=== PATIENT | male | born 1970 | race Caucasian/White ===

== ENCOUNTER 2019-04-06 12:46 | Emergency (ER) | payer OTHER ==
[~2019-04-06] VITALS: Ht 177.8 cm; Wt 81.8 kg
[~2019-04-06 12:46] MED LIST: LIDOcaine 1% w/EPI 1:100,000 30ml vial (MDV) ONE
[2019-04-06] MEDS ORDERED: TETanus/Pertussis (Acell)/Diphther VAC/PF (Tdap-Adult) 0.5ml syringe IM ONE (14:30)
[2019-04-06] MEDS ORDERED: CEPH-572 PO (16:04)
[2019-04-06] MEDS ORDERED: HYDR-3965 PO (16:04)
[2019-04-06 16:13] VITALS: BP 137/93
== END 2019-04-06 16:14 | disposition home or self-care (01) ==
LOC: ER 12:47
DX: S62.630B Displaced fracture of distal phalanx of right index finger, initial encounter for open fracture (principal); S61.210A Laceration without foreign body of right index finger without damage to nail, initial encounter; W45.8XXA Other foreign body or object entering through skin, initial encounter; Y93.89 Activity, other specified; Y92.89 Other specified places as the place of occurrence of the external cause; Y99.9 Unspecified external cause status
CPT/HCPCS: 12001; 73130; 90471; 99283

== ENCOUNTER 2021-12-05 03:32 | Inpatient (IN) | payer BC ==
[~2021-12-05] VITALS: Ht 177.8 cm; Wt 81.8 kg
[2021-12-05 04:05] LABS: BASOPHILS # (AUTO) 0.1 X10'3 (0-0.2); BASOPHILS % (AUTO) 0.5 % (0-1); EOSINOPHILS # (AUTO) 0.2 X10'3 (0-0.9); EOSINOPHILS % (AUTO) 2.1 % (0-6); HEMATOCRIT 47.5 % (42.0-52.0); HEMOGLOBIN 16.2 g/dl (14.0-17.9); LYMPHOCYTES # (AUTO) 1.7 X10'3 (1.1-4.8); LYMPHOCYTES % (AUTO) 17.4 % (21-51); MEAN CORPUSCULAR HEMOGLOBIN 30.1 PG (27.0-31.0); MEAN CORPUSCULAR HGB CONC 34.1 g/dL (33.0-36.5); MEAN CORPUSCULAR VOLUME 88.3 FL (78-98); MEAN PLATELET VOLUME 7.7 FL (7.4-10.4); MONOCYTES # (AUTO) 1.2 X10'3 (0-0.9); MONOCYTES % (AUTO) 12.2 % (2-12); NEUTROPHILS # (AUTO) 6.7 X10'3 (1.8-7.7); NEUTROPHILS % (AUTO) 67.8 % (42-75); PLATELET COUNT 207 X10'3 (140-440); RED BLOOD COUNT 5.37 X10'6 (4.70-6.10); RED CELL DISTRIBUTION WIDTH 13.4 % (11.5-14.5); WHITE BLOOD COUNT 9.9 X10'3 (4.5-11.0)
[2021-12-05 04:17] LABS: ALANINE AMINOTRANSFERASE 17 U/L (12-78); ALBUMIN 3.5 G/DL (3.4-5.0); ALBUMIN/GLOBULIN RATIO 0.9 (1.1-1.5); ALKALINE PHOSPHATASE 96 IU/L (46-116); ANION GAP 9 (8-16); ASPARTATE AMINO TRANSFERASE 18 U/L (10-37); BILIRUBIN,TOTAL 0.6 MG/DL (0.1-1.0); BLOOD UREA NITROGEN 21 MG/DL (7-18); BUN/CREATININE RATIO 16.5 (5.4-32.0); CALCIUM 8.7 MG/DL (8.5-10.1); CHLORIDE 103 MMOL/L (99-107); CREATININE 1.27 MG/DL (0.60-1.10); GLUCOSE 108 MG/DL (70-104); POTASSIUM 5.3 MMOL/L (3.5-5.1); SODIUM 138 MMOL/L (135-145); TOTAL CARBON DIOXIDE 26.3 MMOL/L (24-32); TOTAL PROTEIN 7.3 G/DL (6.4-8.2); eGFR 60 ML/MIN
[2021-12-05] MEDS ORDERED: heparin 25,000 UNIT/250ml bag 250 ML IV SCH ×2 (04:40→09:10)
[2021-12-05] MEDS ORDERED: heparin 10,000 units/1 ML INJ IV ONE (04:40)
[2021-12-05] MEDS ORDERED: heparin 10,000 units/1 ML INJ IV PRN ×2 (04:40→09:10)
[2021-12-05] MEDS ORDERED: iohexol 350MG/ML 100ml bottle IV ONE (04:49)
[2021-12-05 04:53] LABS: APTT 29 SECONDS (22-32)
[2021-12-05] MEDS: heparin 25,000 UNIT/250ml bag 250 ML IV SCH ×2 (05:28→21:38)
[2021-12-05 07:16] LABS: C-REACTIVE PROTEIN 10.38 MG/DL (0.0-0.5)
--- NOTE | 2021-12-05 07:53 | NUR ---
[employer] AT BEDSIDE.
[2021-12-05 08:55] LABS: CLARITY,URINE CLEAR (Clear); COLOR,URINE YELLOW (Yellow); GLUCOSE, URINE NEGATIVE (Neg); KETONES,URINE 15 mg/dl (Neg); LEUKOCYTE ESTERASE ,URINE NEGATIVE (Neg); NITRITES, URINE NEGATIVE (Neg); OCCULT BLOOD,URINE NEGATIVE (Neg); PH,URINE 5.5 (4.8-8.0); PROTEIN,URINE NEGATIVE (Neg)
[2021-12-05 09:07] LABS: UA COLLECTION TYPE NON-SPECIFIED
[2021-12-05] MEDS ORDERED: LORazepam 0.5 MG tablet PO PRN (09:10)
[2021-12-05] MEDS ORDERED: bisacodyl 10mg suppository rectal RC PRN (09:10)
[2021-12-05] MEDS ORDERED: mag hydrox/Alum hydrox/simeth 30ml oral suspension PO PRN (09:10)
[2021-12-05] MEDS ORDERED: normal saline 1000ml 1,000 ML IV SCH (09:10)
[2021-12-05] MEDS ORDERED: potassium CL 10mEq/100ml bag 100 ML IV PRN (09:10)
[2021-12-05] MEDS ORDERED: HYDROcodone/acetaminophen 10/325mg tab PO PRN (09:10)
[2021-12-05] MEDS ORDERED: potassium Cl 20 mEq SR tablet PO PRN ×2 (09:10)
[2021-12-05] MEDS ORDERED: morphine 2 MG/ML inj. syringe IV PRN ×2 (09:10)
[2021-12-05] MEDS ORDERED: magnesium hydroxide 30ml (MOM) UD suspension PO PRN (09:10)
[2021-12-05] MEDS ORDERED: metoclopramide 5 mg/ml inj IV PRN (09:10)
[2021-12-05] MEDS ORDERED: acetaminophen 325mg tablet PO PRN ×2 (09:10)
[2021-12-05] MEDS ORDERED: magnesium 4gm in 100ml NS 100 ML IV PRN (09:10)
[2021-12-05] MEDS ORDERED: magnesium 2GM in 50ml NS 50 ML IV PRN (09:10)
[2021-12-05] MEDS ORDERED: acetaminophen 650mg rectal suppository RC PRN (09:10)
[2021-12-05] MEDS ORDERED: HYDROcodone/acetaminophen 5mg/325mg tablet PO PRN (09:10)
[2021-12-05] MEDS ORDERED: magnesium Cl slow-release 64mg tablet PO PRN (09:10)
[2021-12-05] MEDS ORDERED: ondansetron 4mg rapidly disintigrating tab PO PRN (09:10)
[2021-12-05] MEDS ORDERED: ondansetron/PF 4mg/2ml inj IV PRN (09:10)
[2021-12-05 09:14] LABS: URINE AMPHETAMINE SCREEN POSITIVE (Neg); URINE BARBITUATE SCREEN NEGATIVE (Neg); URINE BENZODIAZEPINES SCREEN NEGATIVE (Neg); URINE CANNABINOID SCREEN POSITIVE (Neg); URINE COCAINE SCREEN NEGATIVE (Neg); URINE METHADONE SCREEN NEGATIVE (Neg); URINE OPIATE SCREEN NEGATIVE (Neg); URINE PHENCYCLIDINE SCREEN NEGATIVE (Neg)
[2021-12-05] MEDS: K and/or MAG REPLACEMENT MC SCH (09:25)
[2021-12-05 09:52] LABS: HEMOGLOBIN A1C 6.3 % (4.5-6.2)
[2021-12-05 10:19] LABS: POTASSIUM 4.4 MMOL/L (3.5-5.1)
--- NOTE | 2021-12-05 11:00 | NUR ---
During IV insertion pt became "light headed". His RR=40, O2 Sats=92% on RA. Placed pt on 2L NC. Sats after O2=94%.
[2021-12-05] MEDS ORDERED: NO HOME MEDS (13:52)
--- NOTE | 2021-12-05 14:03 | NUR ---
Gladys VÁZQUEZ. of pt's episodes of tachypnea.
[2021-12-05 17:49] LABS: APTT 52 SECONDS (22-32)
[2021-12-05 20:00] VITALS: BP 147/97
[2021-12-05] MEDS: metoprolol tartrate 12.5mg (1/2 tablet) PO SCH (20:08)
[2021-12-05] MEDS: docusate sod 100mg capsule PO SCH (20:08)
[2021-12-05] MEDS: furosemide 20 MG/2 ML vial IV SCH (20:09)
[2021-12-05] MEDS ORDERED: temazepam 15mg capsule PO PRN (21:00)
[2021-12-05 22:00] VITALS: BP 151/93
[2021-12-06 01:35] LABS: BASOPHILS # (AUTO) 0.1 X10'3 (0-0.2); BASOPHILS % (AUTO) 0.9 % (0-1); EOSINOPHILS # (AUTO) 0.1 X10'3 (0-0.9); EOSINOPHILS % (AUTO) 0.8 % (0-6); HEMATOCRIT 42.1 % (42.0-52.0); HEMOGLOBIN 14.3 g/dl (14.0-17.9); LYMPHOCYTES # (AUTO) 1.6 X10'3 (1.1-4.8); MEAN CORPUSCULAR HEMOGLOBIN 30.1 PG (27.0-31.0); MEAN CORPUSCULAR HGB CONC 33.9 g/dL (33.0-36.5); MEAN CORPUSCULAR VOLUME 88.5 FL (78-98); MEAN PLATELET VOLUME 7.9 FL (7.4-10.4); MONOCYTES # (AUTO) 0.7 X10'3 (0-0.9); MONOCYTES % (AUTO) 7.2 % (2-12); NEUTROPHILS # (AUTO) 7.3 X10'3 (1.8-7.7); NEUTROPHILS % (AUTO) 75.1 % (42-75); PLATELET COUNT 186 X10'3 (140-440); RED BLOOD COUNT 4.76 X10'6 (4.70-6.10); RED CELL DISTRIBUTION WIDTH 13.1 % (11.5-14.5); WHITE BLOOD COUNT 9.8 X10'3 (4.5-11.0)
[2021-12-06 02:00] VITALS: BP 154/90
[2021-12-06 02:04] LABS: ALANINE AMINOTRANSFERASE 17 U/L (12-78); ALBUMIN 2.9 G/DL (3.4-5.0); ALBUMIN/GLOBULIN RATIO 0.8 (1.1-1.5); ALKALINE PHOSPHATASE 82 IU/L (46-116); ANION GAP 13 (8-16); ASPARTATE AMINO TRANSFERASE 14 U/L (10-37); BILIRUBIN,TOTAL 0.5 MG/DL (0.1-1.0); BLOOD UREA NITROGEN 17 MG/DL (7-18); BUN/CREATININE RATIO 15.9 (5.4-32.0); CHLORIDE 103 MMOL/L (99-107); CHOL/HDL RATIO 3.2 (0.00-4.99); CHOLESTEROL 141 MG/DL (0-200); CREATININE 1.07 MG/DL (0.60-1.10); GLUCOSE 162 MG/DL (70-104); HDL CHOLESTEROL 44 MG/DL (35-60); LDL CHOLESTEROL 82 MG/DL (50-100); MAGNESIUM 1.8 MG/DL (1.5-2.4); PHOSPHORUS 3.2 MG/DL (2.3-4.5); POTASSIUM 3.8 MMOL/L (3.5-5.1); SODIUM 138 MMOL/L (135-145); TOTAL CARBON DIOXIDE 21.6 MMOL/L (24-32); TOTAL PROTEIN 6.4 G/DL (6.4-8.2); TRIGLYCERIDES 73 MG/DL (20-135); eGFR 73 ML/MIN
[2021-12-06 06:00] VITALS: BP 130/45
[2021-12-06] MEDS: metoprolol tartrate 12.5mg (1/2 tablet) PO SCH (07:35)
[2021-12-06] MEDS: furosemide 20 MG/2 ML vial IV SCH ×2 (07:35→19:28)
[2021-12-06] MEDS: docusate sod 100mg capsule PO SCH ×2 (07:35→19:28)
[2021-12-06] MEDS: K and/or MAG REPLACEMENT MC SCH ×2 (07:49→20:00)
[2021-12-06] MEDS ORDERED: metoprolol tartrate 12.5mg (1/2 tablet) PO ONE (09:15)
[2021-12-06] MEDS: heparin 10,000 units/1 ML INJ IV PRN ×2 (10:31→19:25)
[2021-12-06 11:00] VITALS: BP 131/95
[2021-12-06 15:00] VITALS: BP 151/60
[2021-12-06] MEDS: heparin 25,000 UNIT/250ml bag 250 ML IV SCH (16:05)
[2021-12-06 18:00] VITALS: BP 141/96
--- NOTE | 2021-12-06 18:30 | NUR ---
received pt in bed sleeping , arousal to stimuli. Heparin infusing. PTT level 37 medication adjusted per protocol; now infusing at 1600.
[2021-12-06] MEDS: metoprolol tartrate 25mg tablet PO SCH (19:31)
[2021-12-06 22:00] VITALS: BP 134/94
[2021-12-07 02:00] VITALS: BP 150/94
[2021-12-07 06:46] LABS: BASOPHILS # (AUTO) 0.1 X10'3 (0-0.2); BASOPHILS % (AUTO) 0.9 % (0-1); EOSINOPHILS # (AUTO) 0.2 X10'3 (0-0.9); EOSINOPHILS % (AUTO) 2.7 % (0-6); HEMOGLOBIN 14.4 g/dl (14.0-17.9); LYMPHOCYTES % (AUTO) 26.2 % (21-51); MEAN CORPUSCULAR HEMOGLOBIN 30.3 PG (27.0-31.0); MEAN CORPUSCULAR HGB CONC 34.4 g/dL (33.0-36.5); MEAN CORPUSCULAR VOLUME 88.1 FL (78-98); MONOCYTES % (AUTO) 12.4 % (2-12); NEUTROPHILS # (AUTO) 4.5 X10'3 (1.8-7.7); NEUTROPHILS % (AUTO) 57.8 % (42-75); PLATELET COUNT 224 X10'3 (140-440); RED BLOOD COUNT 4.76 X10'6 (4.70-6.10); RED CELL DISTRIBUTION WIDTH 13.1 % (11.5-14.5); WHITE BLOOD COUNT 7.8 X10'3 (4.5-11.0)
[2021-12-07 07:12] LABS: ALANINE AMINOTRANSFERASE 13 U/L (12-78); ALBUMIN 2.8 G/DL (3.4-5.0); ALBUMIN/GLOBULIN RATIO 0.8 (1.1-1.5); ALKALINE PHOSPHATASE 75 IU/L (46-116); ANION GAP 13 (8-16); ASPARTATE AMINO TRANSFERASE 14 U/L (10-37); BILIRUBIN,TOTAL 0.3 MG/DL (0.1-1.0); BLOOD UREA NITROGEN 13 MG/DL (7-18); BUN/CREATININE RATIO 11.6 (5.4-32.0); CALCIUM 8.2 MG/DL (8.5-10.1); CHLORIDE 104 MMOL/L (99-107); CREATININE 1.12 MG/DL (0.60-1.10); GLUCOSE 126 MG/DL (70-104); PHOSPHORUS 3.6 MG/DL (2.3-4.5); POTASSIUM 3.6 MMOL/L (3.5-5.1); SODIUM 140 MMOL/L (135-145); TOTAL CARBON DIOXIDE 23.2 MMOL/L (24-32); TOTAL PROTEIN 6.5 G/DL (6.4-8.2); eGFR 69 ML/MIN
[2021-12-07 07:30] LABS: MAGNESIUM 2.1 MG/DL (1.5-2.4)
[2021-12-07] MEDS: K and/or MAG REPLACEMENT MC SCH (08:00)
[2021-12-07 08:06] VITALS: BP_SYST 179
[2021-12-07] MEDS: metoprolol tartrate 25mg tablet PO SCH (08:06)
[2021-12-07] MEDS: docusate sod 100mg capsule PO SCH (08:06)
[2021-12-07] MEDS: furosemide 20 MG/2 ML vial IV SCH (08:07)
[2021-12-07] MEDS: heparin 25,000 UNIT/250ml bag 250 ML IV SCH (08:08)
[2021-12-07] MEDS ORDERED: APIX5TAB3 PO (12:48)
[2021-12-07] MEDS ORDERED: FURO20TA4 PO (12:48)
[2021-12-07] MEDS ORDERED: LOP25T PO (12:48)
[2021-12-07] MEDS ORDERED: POTA10TA37 PO (12:48)
[2021-12-07] MEDS ORDERED: apixaban 5mg tablet PO ONE (13:00)
== END 2021-12-07 13:57 | disposition home or self-care (01) | DRG 175 ==
LOC: ER 03:32 → ED HOLD 09:14 → PCU 3S 19:40
PROVIDERS: ADMIT Family Medicine; ATTEND Family Medicine
PROC: B32T1ZZ Computerized Tomography (CT Scan) of Left Pulmonary Artery using Low Osmolar Contrast (ICD-10-PCS; principal; 2021-12-05)
PROC: B3201ZZ Computerized Tomography (CT Scan) of Thoracic Aorta using Low Osmolar Contrast (ICD-10-PCS; 2021-12-05)
PROC: B32S1ZZ Computerized Tomography (CT Scan) of Right Pulmonary Artery using Low Osmolar Contrast (ICD-10-PCS; 2021-12-05)
DX: I26.99 Other pulmonary embolism without acute cor pulmonale (principal); I21.A1 Myocardial infarction type 2; J96.01 Acute respiratory failure with hypoxia; N17.9 Acute kidney failure, unspecified; I82.412 Acute embolism and thrombosis of left femoral vein; I82.432 Acute embolism and thrombosis of left popliteal vein; I82.532 Chronic embolism and thrombosis of left popliteal vein; I82.4Z1 Acute embolism and thrombosis of unspecified deep veins of right distal lower extremity; I10 Essential (primary) hypertension; F17.220 Nicotine dependence, chewing tobacco, uncomplicated; F15.10 Other stimulant abuse, uncomplicated; Z20.822 Contact with and (suspected) exposure to COVID-19; E87.5 Hyperkalemia; F12.90 Cannabis use, unspecified, uncomplicated; I07.1 Rheumatic tricuspid insufficiency; I27.20 Pulmonary hypertension, unspecified; R00.0 Tachycardia, unspecified; R59.9 Enlarged lymph nodes, unspecified; R91.8 Other nonspecific abnormal finding of lung field; Z86.16 Personal history of COVID-19; Z71.6 Tobacco abuse counseling; Z71.51 Drug abuse counseling and surveillance of drug abuser
CPT/HCPCS: 36415; 71045; 71275; 80053; 80061; 80305; 81003; 83036; 83735; 83880; 84100; 84132; 84443; 84484; 85025; 85610; 85730; 86140; 87081; 87635; 93005; 93306; 93970; 96361; 96365; 96376; 99291; C9803; G0378; J1644; J1940; J2270; J7030; Q9967

== ENCOUNTER 2023-10-03 01:18 | Inpatient (IN) | payer BC ==
[~2023-10-03] VITALS: Ht 160 cm; Wt 81.9 kg
[2023-10-03] VITALS (10 sets, daily range): PULSE 87–98; RESP 16–36; O2SAT 92–98
[~2023-10-03 01:18] MED LIST changes: +APIX5TAB3 PO; +FURO20TA4 PO; -LIDOcaine 1% w/EPI 1:100,000 30ml vial (MDV) ONE; +LOP25T PO; +POTA-206 PO
[2023-10-03 01:44] LABS: BASOPHILS # (AUTO) 0.1 X10'3 (0-0.2); BASOPHILS % (AUTO) 0.4 % (0-1); EOSINOPHILS % (AUTO) 0.2 % (0-6); HEMATOCRIT 51.4 % (42.0-52.0); HEMOGLOBIN 17.6 g/dl (14.0-17.9); LYMPHOCYTES # (AUTO) 0.9 X10'3 (1.1-4.8); LYMPHOCYTES % (AUTO) 7.8 % (21-51); MEAN CORPUSCULAR HEMOGLOBIN 31.3 PG (27.0-31.0); MEAN CORPUSCULAR HGB CONC 34.2 g/dL (33.0-36.5); MEAN CORPUSCULAR VOLUME 91.3 FL (78-98); MEAN PLATELET VOLUME 8.1 FL (7.4-10.4); MONOCYTES # (AUTO) 1.3 X10'3 (0-0.9); MONOCYTES % (AUTO) 11.3 % (2-12); NEUTROPHILS # (AUTO) 9.3 X10'3 (1.8-7.7); NEUTROPHILS % (AUTO) 80.3 % (42-75); PLATELET COUNT 242 X10'3 (140-440); RED BLOOD COUNT 5.63 X10'6 (4.70-6.10); RED CELL DISTRIBUTION WIDTH 13.6 % (11.5-14.5); WHITE BLOOD COUNT 11.5 X10'3 (4.5-11.0)
[2023-10-03 01:50] LABS: ALANINE AMINOTRANSFERASE 17 U/L (12-78); ALBUMIN 3.4 G/DL (3.4-5.0); ALBUMIN/GLOBULIN RATIO 0.9 (1.1-1.5); ALKALINE PHOSPHATASE 96 IU/L (46-116); ANION GAP 9 (8-16); ASPARTATE AMINO TRANSFERASE 22 U/L (10-37); BILIRUBIN,TOTAL 0.5 MG/DL (0.1-1.0); BLOOD UREA NITROGEN 32 MG/DL (7-18); BUN/CREATININE RATIO 23.7 (10.0-20.0); CALCIUM 8.8 MG/DL (8.5-10.1); CHLORIDE 96 MMOL/L (99-107); CREATININE 1.35 MG/DL (0.60-1.10); GLUCOSE 108 MG/DL (70-104); SODIUM 132 MMOL/L (135-145); TOTAL CARBON DIOXIDE 26.9 MMOL/L (24-32); TOTAL PROTEIN 7.3 G/DL (6.4-8.2); eCRCL 65 ML/MIN; eGFR 55 ML/MIN
[2023-10-03 01:57] LABS: PRO BRAIN NATRIURETIC PEPTIDE 2109 PG/ML (0-125)
[2023-10-03] MEDS ORDERED: iohexol 350MG/ML 100ml bottle IV ONE (01:58)
[2023-10-03] MEDS ORDERED: normal saline 1000ml 1,000 ML IV ONE (02:00)
[2023-10-03 02:11] LABS: ABG BASE EXCESS -3.9 mmol/L (-2.0-2.0); ABG HCO3 19.2 mmol/L (22.0-26.0); ABG OXYGEN SATURATION 87.3 % (94-97); ABG PCO2 (T) 30.3 mmHg (35.0-48.0); ABG PH (T) 7.416 (7.340-7.440); ABG PO2 (T) 51.2 mmHg (75.0-100.0); ALLEN'S TEST POSITIVE; FCOHb 0.3 % (0.0-3.9); FHHb 12.6 % (0.0-5.0); FMetHb 0.2 % (0.0-1.5); FO2Hb 86.9 % (94-97); PATIENT TEMPERATURE 36.5; TOTAL HEMOGLOBIN 18.5 G/dl (14.0-17.9)
[2023-10-03 02:14] LABS: APTT 36 SECONDS (22-32); INR 1.1 INR; PROTHROMBIN TIME 11.6 SECONDS (9.0-12.0)
[2023-10-03] MEDS ORDERED: CefTRIAXone/D5W-Rocephin 1gm 50 ML IV STA (03:12)
[2023-10-03] MEDS ORDERED: azithromycin/NS 500mg/250ml 250 ML IV STA (03:12)
[2023-10-03] MEDS ORDERED: morphine 2 MG/ML inj. syringe IV PRN (05:15)
[2023-10-03] MEDS ORDERED: mag hydrox/Alum hydrox/simeth 30ml oral suspension PO PRN (05:15)
[2023-10-03] MEDS ORDERED: bisacodyl 10mg suppository rectal RC PRN (05:15)
[2023-10-03] MEDS ORDERED: HYDROcodone/acetaminophen 10/325mg tab PO PRN (05:15)
[2023-10-03] MEDS ORDERED: magnesium hydroxide 30ml (MOM) UD suspension PO PRN (05:15)
[2023-10-03] MEDS ORDERED: ondansetron/PF 4mg/2ml inj IV PRN (05:15)
[2023-10-03] MEDS ORDERED: diphenhydrAMINE 50 mg/ml inj IV PRN (05:15)
[2023-10-03] MEDS ORDERED: ondansetron 4mg rapidly disintigrating tab PO PRN (05:15)
[2023-10-03] MEDS ORDERED: acetaminophen 650mg rectal suppository RC PRN (05:15)
[2023-10-03] MEDS ORDERED: diphenhydrAMINE 25mg capsule PO PRN (05:15)
[2023-10-03] MEDS ORDERED: HYDROcodone/acetaminophen 5mg/325mg tablet PO PRN (05:15)
[2023-10-03] MEDS ORDERED: ipratropium/albuterol 3ml nebule NEB PRN (05:15)
[2023-10-03] MEDS ORDERED: acetaminophen 325mg tablet PO PRN ×2 (05:15)
[2023-10-03 06:03] LABS: HEMOGLOBIN A1C 5.9 % (4.5-6.2)
[2023-10-03 06:06] LABS: MAGNESIUM 1.8 MG/DL (1.5-2.4); PHOSPHORUS 4.9 MG/DL (2.3-4.5)
[2023-10-03] MEDS: pantoprazole 40mg Tablet.DR PO SCH (07:30)
[2023-10-03] MEDS: docusate sod 100mg capsule PO SCH ×2 (07:45→20:59)
[2023-10-03] MEDS: normal saline 1000ml 1,000 ML IV SCH ×2 (07:55→15:15)
[2023-10-03] MEDS ORDERED: LORazepam 2 mg/ml vial IV ONE (09:30)
[2023-10-03] MEDS ORDERED: methylPREDNISolone sod succ 125mg/2ml vial IV ONE (09:30)
[2023-10-03 13:49] LABS: URINE AMPHETAMINE SCREEN POSITIVE (Neg); URINE BARBITUATE SCREEN NEGATIVE (Neg); URINE BENZODIAZEPINES SCREEN NEGATIVE (Neg); URINE CANNABINOID SCREEN POSITIVE (Neg); URINE COCAINE SCREEN NEGATIVE (Neg); URINE METHADONE SCREEN NEGATIVE (Neg); URINE OPIATE SCREEN NEGATIVE (Neg); URINE PHENCYCLIDINE SCREEN NEGATIVE (Neg)
[2023-10-03 13:59] LABS: ABG BASE EXCESS -0.7 mmol/L (-2.0-2.0); ABG HCO3 23.6 mmol/L (22.0-26.0); ABG PCO2 (T) 37.3 mmHg (35.0-48.0); ABG PH (T) 7.416 (7.340-7.440); ABG PO2 (T) 67.5 mmHg (75.0-100.0); ALLEN'S TEST POSITIVE; FCOHb 0.3 % (0.0-3.9); FMetHb 0.2 % (0.0-1.5); FO2Hb 93.5 % (94-97); MODE MASK - CPAP; PATIENT TEMPERATURE 36.3; TOTAL HEMOGLOBIN 17.5 G/dl (14.0-17.9)
[2023-10-03 14:03] LABS: BILIRUBIN,URINE NEGATIVE (Neg); CLARITY,URINE CLEAR (Clear); COLOR,URINE YELLOW (Yellow); GLUCOSE, URINE NEGATIVE (Neg); KETONES,URINE NEGATIVE (Neg); LEUKOCYTE ESTERASE ,URINE NEGATIVE (Neg); NITRITES, URINE NEGATIVE (Neg); OCCULT BLOOD,URINE NEGATIVE (Neg); PROTEIN,URINE NEGATIVE (Neg); UROBILINOGEN,URINE 0.2 E.U/dL (0.2-1.0)
[2023-10-03 14:17] LABS: UA COLLECTION TYPE CLN CATCH MIDSTREAM
[2023-10-03] MEDS: amLODIPine 5mg tablet PO SCH (14:42)
[2023-10-03] MEDS: LORazepam 2 mg/ml vial IV PRN (18:01)
[2023-10-03] MEDS: apixaban 5mg tablet PO SCH (20:00)
[2023-10-03] MEDS: metoprolol tartrate 25mg tablet PO SCH (20:00)
[2023-10-03] MEDS: azithromycin/NS 500mg/250ml 250 ML IV SCH (20:59)
[2023-10-03] MEDS: CefTRIAXone/D5W-Rocephin 1gm 50 ML IV SCH (21:00)
[2023-10-03] MEDS: temazepam 15mg capsule PO PRN (21:00)
[2023-10-03] MEDS ORDERED: diazepam inj 5 MG/ML inj. IV PRN (22:35)
[2023-10-04] VITALS (14 sets, daily range): BP systolic 104–121; BP diastolic 68–87; PULSE 78–104; RESP 16–37; TEMP 97.6–98.1; O2SAT 91–99
[2023-10-04] MEDS: normal saline 1000ml 1,000 ML IV SCH ×3 (01:15→13:21)
[2023-10-04 06:25] LABS: ALANINE AMINOTRANSFERASE 18 U/L (12-78); ALBUMIN 3.1 G/DL (3.4-5.0); ALBUMIN/GLOBULIN RATIO 0.8 (1.1-1.5); ALKALINE PHOSPHATASE 81 IU/L (46-116); ANION GAP 5 (8-16); ASPARTATE AMINO TRANSFERASE 17 U/L (10-37); BILIRUBIN,TOTAL 0.3 MG/DL (0.1-1.0); BLOOD UREA NITROGEN 27 MG/DL (7-18); BUN/CREATININE RATIO 29.7 (10.0-20.0); CALCIUM 8.8 MG/DL (8.5-10.1); CHLORIDE 103 MMOL/L (99-107); CHOL/HDL RATIO 2.9 (0.00-4.99); CHOLESTEROL 206 MG/DL (0-200); CREATININE 0.91 MG/DL (0.60-1.10); GLUCOSE 106 MG/DL (70-104); HDL CHOLESTEROL 71 MG/DL (35-60); LDL CHOLESTEROL 118 MG/DL (50-100); POTASSIUM 5.4 MMOL/L (3.5-5.1); SODIUM 137 MMOL/L (135-145); TOTAL CARBON DIOXIDE 29.4 MMOL/L (24-32); TOTAL PROTEIN 6.8 G/DL (6.4-8.2); TRIGLYCERIDES 43 MG/DL (20-135); eCRCL 76 ML/MIN; eGFR 87 ML/MIN
[2023-10-04 06:29] LABS: BASOPHILS % (AUTO) 0.2 % (0-1); EOSINOPHILS % (AUTO) 0 % (0-6); HEMATOCRIT 47.8 % (42.0-52.0); HEMOGLOBIN 16.1 g/dl (14.0-17.9); LYMPHOCYTES # (AUTO) 0.6 X10'3 (1.1-4.8); LYMPHOCYTES % (AUTO) 5.5 % (21-51); MEAN CORPUSCULAR HEMOGLOBIN 31.1 PG (27.0-31.0); MEAN CORPUSCULAR HGB CONC 33.7 g/dL (33.0-36.5); MEAN CORPUSCULAR VOLUME 92.1 FL (78-98); MEAN PLATELET VOLUME 8.4 FL (7.4-10.4); MONOCYTES # (AUTO) 0.7 X10'3 (0-0.9); MONOCYTES % (AUTO) 6.4 % (2-12); NEUTROPHILS # (AUTO) 9.6 X10'3 (1.8-7.7); NEUTROPHILS % (AUTO) 87.9 % (42-75); PLATELET COUNT 223 X10'3 (140-440); RED BLOOD COUNT 5.19 X10'6 (4.70-6.10); RED CELL DISTRIBUTION WIDTH 13.5 % (11.5-14.5); WHITE BLOOD COUNT 10.9 X10'3 (4.5-11.0)
[2023-10-04 09:39] LABS: ABG BASE EXCESS -1.3 mmol/L (-2.0-2.0); ABG HCO3 23.6 mmol/L (22.0-26.0); ABG OXYGEN SATURATION 98.7 % (94-97); ABG PCO2 (T) 40.5 mmHg (35.0-48.0); ABG PH (T) 7.383 (7.340-7.440); ABG PO2 (T) 121.5 mmHg (75.0-100.0); ALLEN'S TEST POSITIVE; FCOHb 0.3 % (0.0-3.9); FHHb 1.3 % (0.0-5.0); FMetHb 0.3 % (0.0-1.5); FO2Hb 98.1 % (94-97); MODE MASK - CPAP; TOTAL HEMOGLOBIN 16.4 G/dl (14.0-17.9)
[2023-10-04] MEDS: amLODIPine 5mg tablet PO SCH (09:47)
[2023-10-04] MEDS: docusate sod 100mg capsule PO SCH ×2 (09:47→21:53)
[2023-10-04] MEDS: metoprolol tartrate 25mg tablet PO SCH ×2 (09:47→21:54)
[2023-10-04] MEDS: apixaban 5mg tablet PO SCH ×2 (09:47→21:54)
[2023-10-04] MEDS: pantoprazole 40mg Tablet.DR PO SCH (09:47)
[2023-10-04] MEDS: CefTRIAXone/D5W-Rocephin 1gm 50 ML IV SCH (21:55)
[2023-10-04] MEDS: azithromycin/NS 500mg/250ml 250 ML IV SCH (22:57)
[2023-10-04] MEDS: LORazepam 2 mg/ml vial IV PRN (23:34)
[2023-10-05] VITALS (16 sets, daily range): BP systolic 99–123; BP diastolic 57–88; PULSE 76–99; RESP 20–36; TEMP 97.2–98; O2SAT 92–99
[2023-10-05] MEDS: normal saline 1000ml 1,000 ML IV SCH ×2 (05:56→16:58)
[2023-10-05 06:52] LABS: BASOPHILS % (AUTO) 0.4 % (0-1); EOSINOPHILS % (AUTO) 0.2 % (0-6); HEMATOCRIT 46.9 % (42.0-52.0); HEMOGLOBIN 15.6 g/dl (14.0-17.9); LYMPHOCYTES # (AUTO) 1.1 X10'3 (1.1-4.8); LYMPHOCYTES % (AUTO) 10.8 % (21-51); MEAN CORPUSCULAR HEMOGLOBIN 30.8 PG (27.0-31.0); MEAN CORPUSCULAR HGB CONC 33.3 g/dL (33.0-36.5); MEAN CORPUSCULAR VOLUME 92.5 FL (78-98); MEAN PLATELET VOLUME 8.1 FL (7.4-10.4); MONOCYTES # (AUTO) 0.8 X10'3 (0-0.9); MONOCYTES % (AUTO) 8.4 % (2-12); NEUTROPHILS % (AUTO) 80.2 % (42-75); PLATELET COUNT 242 X10'3 (140-440); RED BLOOD COUNT 5.07 X10'6 (4.70-6.10); RED CELL DISTRIBUTION WIDTH 13.6 % (11.5-14.5); WHITE BLOOD COUNT 9.9 X10'3 (4.5-11.0)
[2023-10-05 07:13] LABS: ALANINE AMINOTRANSFERASE 19 U/L (12-78); ALBUMIN 2.8 G/DL (3.4-5.0); ALBUMIN/GLOBULIN RATIO 0.8 (1.1-1.5); ALKALINE PHOSPHATASE 76 IU/L (46-116); ANION GAP 9 (8-16); ASPARTATE AMINO TRANSFERASE 16 U/L (10-37); BILIRUBIN,TOTAL 0.4 MG/DL (0.1-1.0); BLOOD UREA NITROGEN 23 MG/DL (7-18); BUN/CREATININE RATIO 29.1 (10.0-20.0); CALCIUM 8.5 MG/DL (8.5-10.1); CHLORIDE 102 MMOL/L (99-107); CREATININE 0.79 MG/DL (0.60-1.10); GLUCOSE 88 MG/DL (70-104); POTASSIUM 4.3 MMOL/L (3.5-5.1); SODIUM 137 MMOL/L (135-145); TOTAL CARBON DIOXIDE 26.5 MMOL/L (24-32); TOTAL PROTEIN 6.3 G/DL (6.4-8.2); eCRCL 87 ML/MIN; eGFR > 90 ML/MIN
[2023-10-05] MEDS: docusate sod 100mg capsule PO SCH ×2 (08:00→19:48)
[2023-10-05] MEDS ORDERED: furosemide 20 MG/2 ML vial IV SCH (08:00)
[2023-10-05] MEDS: apixaban 5mg tablet PO SCH ×2 (08:05→19:48)
[2023-10-05] MEDS: pantoprazole 40mg Tablet.DR PO SCH (08:05)
[2023-10-05] MEDS: metoprolol tartrate 25mg tablet PO SCH ×2 (08:06→19:48)
[2023-10-05] MEDS: temazepam 15mg capsule PO PRN (19:48)
[2023-10-05] MEDS: furosemide 40mg/4ml inj IV SCH (19:49)
[2023-10-05] MEDS: CefTRIAXone/D5W-Rocephin 1gm 50 ML IV SCH (20:01)
[2023-10-06] VITALS (13 sets, daily range): BP systolic 109–143; BP diastolic 51–84; PULSE 76–106; RESP 18–36; TEMP 97–99.1; O2SAT 85–98
[2023-10-06 07:09] LABS: BASOPHILS % (AUTO) 0.6 % (0-1); EOSINOPHILS # (AUTO) 0.2 X10'3 (0-0.9); EOSINOPHILS % (AUTO) 2.1 % (0-6); HEMATOCRIT 48.8 % (42.0-52.0); HEMOGLOBIN 16.5 g/dl (14.0-17.9); LYMPHOCYTES # (AUTO) 1.3 X10'3 (1.1-4.8); LYMPHOCYTES % (AUTO) 16.6 % (21-51); MEAN CORPUSCULAR HGB CONC 33.7 g/dL (33.0-36.5); MEAN CORPUSCULAR VOLUME 92.1 FL (78-98); MONOCYTES # (AUTO) 0.9 X10'3 (0-0.9); MONOCYTES % (AUTO) 12.2 % (2-12); NEUTROPHILS # (AUTO) 5.3 X10'3 (1.8-7.7); NEUTROPHILS % (AUTO) 68.5 % (42-75); PLATELET COUNT 269 X10'3 (140-440); RED CELL DISTRIBUTION WIDTH 13.3 % (11.5-14.5); WHITE BLOOD COUNT 7.7 X10'3 (4.5-11.0)
[2023-10-06 07:32] LABS: ALANINE AMINOTRANSFERASE 17 U/L (12-78); ALBUMIN/GLOBULIN RATIO 0.8 (1.1-1.5); ALKALINE PHOSPHATASE 84 IU/L (46-116); ANION GAP 9 (8-16); ASPARTATE AMINO TRANSFERASE 18 U/L (10-37); BILIRUBIN,TOTAL 0.3 MG/DL (0.1-1.0); BLOOD UREA NITROGEN 19 MG/DL (7-18); BUN/CREATININE RATIO 17.6 (10.0-20.0); CALCIUM 8.6 MG/DL (8.5-10.1); CHLORIDE 101 MMOL/L (99-107); CREATININE 1.08 MG/DL (0.60-1.10); GLUCOSE 97 MG/DL (70-104); POTASSIUM 4.1 MMOL/L (3.5-5.1); SODIUM 138 MMOL/L (135-145); TOTAL CARBON DIOXIDE 27.7 MMOL/L (24-32); TOTAL PROTEIN 6.7 G/DL (6.4-8.2); eCRCL 64 ML/MIN; eGFR 72 ML/MIN
[2023-10-06] MEDS: docusate sod 100mg capsule PO SCH ×2 (07:58→19:01)
[2023-10-06] MEDS: furosemide 40mg/4ml inj IV SCH ×2 (07:58→20:18)
[2023-10-06] MEDS: azithromycin 250mg tablet PO SCH (07:58)
[2023-10-06] MEDS: pantoprazole 40mg Tablet.DR PO SCH (07:58)
[2023-10-06] MEDS: normal saline 1000ml 1,000 ML IV SCH (07:59)
[2023-10-06] MEDS: apixaban 5mg tablet PO SCH ×2 (07:59→20:18)
[2023-10-06] MEDS: metoprolol tartrate 25mg tablet PO SCH ×2 (07:59→20:19)
[2023-10-06] MEDS: LORazepam 2 mg/ml vial IV PRN (17:33)
[2023-10-06] MEDS: temazepam 15mg capsule PO PRN (20:19)
[2023-10-06] MEDS: CefTRIAXone/D5W-Rocephin 1gm 50 ML IV SCH (20:20)
[2023-10-07] VITALS (12 sets, daily range): BP systolic 101–139; BP diastolic 60–87; PULSE 84–106; RESP 18–36; TEMP 98.2–99.2; O2SAT 84–96
[2023-10-07] MEDS: pantoprazole 40mg Tablet.DR PO SCH (07:30)
[2023-10-07] MEDS: azithromycin 250mg tablet PO SCH (08:00)
[2023-10-07] MEDS: metoprolol tartrate 25mg tablet PO SCH ×2 (08:00→19:11)
[2023-10-07] MEDS: docusate sod 100mg capsule PO SCH ×2 (08:00→19:12)
[2023-10-07] MEDS: furosemide 40mg/4ml inj IV SCH ×2 (08:00→19:12)
[2023-10-07] MEDS: apixaban 5mg tablet PO SCH ×2 (08:00→19:12)
[2023-10-07 08:07] LABS: BASOPHILS # (AUTO) 0.1 X10'3 (0-0.2); BASOPHILS % (AUTO) 0.8 % (0-1); EOSINOPHILS # (AUTO) 0.2 X10'3 (0-0.9); EOSINOPHILS % (AUTO) 1.9 % (0-6); HEMATOCRIT 52.1 % (42.0-52.0); HEMOGLOBIN 17.7 g/dl (14.0-17.9); LYMPHOCYTES # (AUTO) 1.3 X10'3 (1.1-4.8); LYMPHOCYTES % (AUTO) 14.2 % (21-51); MEAN CORPUSCULAR HEMOGLOBIN 31.4 PG (27.0-31.0); MEAN CORPUSCULAR HGB CONC 34.1 g/dL (33.0-36.5); MEAN CORPUSCULAR VOLUME 92.1 FL (78-98); MEAN PLATELET VOLUME 7.9 FL (7.4-10.4); MONOCYTES # (AUTO) 1.1 X10'3 (0-0.9); MONOCYTES % (AUTO) 11.8 % (2-12); NEUTROPHILS # (AUTO) 6.5 X10'3 (1.8-7.7); NEUTROPHILS % (AUTO) 71.3 % (42-75); PLATELET COUNT 310 X10'3 (140-440); RED BLOOD COUNT 5.66 X10'6 (4.70-6.10); RED CELL DISTRIBUTION WIDTH 13.1 % (11.5-14.5); WHITE BLOOD COUNT 9.2 X10'3 (4.5-11.0)
[2023-10-07 08:34] LABS: ALANINE AMINOTRANSFERASE 18 U/L (12-78); ALBUMIN 3.1 G/DL (3.4-5.0); ALBUMIN/GLOBULIN RATIO 0.8 (1.1-1.5); ALKALINE PHOSPHATASE 90 IU/L (46-116); ANION GAP 11 (8-16); ASPARTATE AMINO TRANSFERASE 26 U/L (10-37); BILIRUBIN,TOTAL 0.5 MG/DL (0.1-1.0); BLOOD UREA NITROGEN 17 MG/DL (7-18); BUN/CREATININE RATIO 14.4 (10.0-20.0); CALCIUM 8.7 MG/DL (8.5-10.1); CHLORIDE 99 MMOL/L (99-107); CREATININE 1.18 MG/DL (0.60-1.10); GLUCOSE 145 MG/DL (70-104); POTASSIUM 3.9 MMOL/L (3.5-5.1); SODIUM 135 MMOL/L (135-145); TOTAL CARBON DIOXIDE 24.9 MMOL/L (24-32); TOTAL PROTEIN 7.2 G/DL (6.4-8.2); eCRCL 58 ML/MIN; eGFR 65 ML/MIN
[2023-10-07] MEDS: normal saline 1000ml 1,000 ML IV SCH (14:55)
[2023-10-07] MEDS: CefTRIAXone/D5W-Rocephin 1gm 50 ML IV SCH (21:44)
[2023-10-08] VITALS (13 sets, daily range): BP systolic 108–112; BP diastolic 71–81; PULSE 78–113; RESP 17–34; TEMP 97.5–98.5; O2SAT 92–95
[2023-10-08] MEDS: pantoprazole 40mg Tablet.DR PO SCH (07:30)
[2023-10-08 08:15] LABS: BASOPHILS # (AUTO) 0.1 X10'3 (0-0.2); BASOPHILS % (AUTO) 0.8 % (0-1); EOSINOPHILS # (AUTO) 0.3 X10'3 (0-0.9); EOSINOPHILS % (AUTO) 2.6 % (0-6); HEMATOCRIT 54.5 % (42.0-52.0); LYMPHOCYTES # (AUTO) 1.6 X10'3 (1.1-4.8); MEAN CORPUSCULAR HEMOGLOBIN 30.7 PG (27.0-31.0); MEAN CORPUSCULAR HGB CONC 33.6 g/dL (33.0-36.5); MEAN CORPUSCULAR VOLUME 91.3 FL (78-98); MEAN PLATELET VOLUME 7.6 FL (7.4-10.4); MONOCYTES # (AUTO) 1.2 X10'3 (0-0.9); MONOCYTES % (AUTO) 11.8 % (2-12); NEUTROPHILS # (AUTO) 6.9 X10'3 (1.8-7.7); NEUTROPHILS % (AUTO) 68.8 % (42-75); PLATELET COUNT 331 X10'3 (140-440); RED BLOOD COUNT 5.97 X10'6 (4.70-6.10); RED CELL DISTRIBUTION WIDTH 13.3 % (11.5-14.5)
[2023-10-08 08:19] LABS: HEMOGLOBIN 18.3 g/dl (14.0-17.9)
[2023-10-08 08:36] LABS: ALANINE AMINOTRANSFERASE 19 U/L (12-78); ALBUMIN 3.1 G/DL (3.4-5.0); ALBUMIN/GLOBULIN RATIO 0.8 (1.1-1.5); ALKALINE PHOSPHATASE 87 IU/L (46-116); ANION GAP 9 (8-16); ASPARTATE AMINO TRANSFERASE 21 U/L (10-37); BILIRUBIN,TOTAL 0.5 MG/DL (0.1-1.0); BLOOD UREA NITROGEN 20 MG/DL (7-18); BUN/CREATININE RATIO 16.4 (10.0-20.0); CALCIUM 8.9 MG/DL (8.5-10.1); CHLORIDE 99 MMOL/L (99-107); CREATININE 1.22 MG/DL (0.60-1.10); GLUCOSE 102 MG/DL (70-104); POTASSIUM 4.1 MMOL/L (3.5-5.1); SODIUM 139 MMOL/L (135-145); TOTAL CARBON DIOXIDE 31.5 MMOL/L (24-32); TOTAL PROTEIN 7.1 G/DL (6.4-8.2); eCRCL 56 ML/MIN; eGFR 62 ML/MIN
[2023-10-08] MEDS: apixaban 5mg tablet PO SCH ×2 (08:44→19:24)
[2023-10-08] MEDS: furosemide 40mg/4ml inj IV SCH ×2 (08:44→19:25)
[2023-10-08] MEDS: docusate sod 100mg capsule PO SCH ×2 (08:44→19:24)
[2023-10-08] MEDS: atorvastatin 10mg tablet PO SCH (08:44)
[2023-10-08] MEDS: metoprolol tartrate 25mg tablet PO SCH ×2 (08:45→19:24)
[2023-10-08] MEDS: azithromycin 250mg tablet PO SCH (08:45)
[2023-10-08] MEDS: LORazepam 2 mg/ml vial IV PRN (19:40)
[2023-10-08] MEDS: CefTRIAXone/D5W-Rocephin 1gm 50 ML IV SCH (20:15)
[2023-10-09] VITALS (16 sets, daily range): BP systolic 110–133; BP diastolic 75–86; PULSE 82–119; RESP 18–30; TEMP 97.4–98.2; O2SAT 90–97
[2023-10-09] MEDS: furosemide 40mg/4ml inj IV SCH ×2 (07:52→20:34)
[2023-10-09] MEDS: apixaban 5mg tablet PO SCH ×2 (07:52→20:34)
[2023-10-09] MEDS: azithromycin 250mg tablet PO SCH (07:52)
[2023-10-09] MEDS: pantoprazole 40mg Tablet.DR PO SCH (07:52)
[2023-10-09] MEDS: atorvastatin 10mg tablet PO SCH (07:53)
[2023-10-09] MEDS: docusate sod 100mg capsule PO SCH ×2 (07:54→20:00)
[2023-10-09] MEDS: metoprolol tartrate 25mg tablet PO SCH ×2 (07:54→20:34)
[2023-10-09 09:52] LABS: BASOPHILS # (AUTO) 0.1 X10'3 (0-0.2); BASOPHILS % (AUTO) 1.4 % (0-1); EOSINOPHILS # (AUTO) 0.3 X10'3 (0-0.9); EOSINOPHILS % (AUTO) 3.3 % (0-6); HEMATOCRIT 53.8 % (42.0-52.0); LYMPHOCYTES # (AUTO) 1.4 X10'3 (1.1-4.8); LYMPHOCYTES % (AUTO) 15.5 % (21-51); MEAN CORPUSCULAR HEMOGLOBIN 31.2 PG (27.0-31.0); MEAN CORPUSCULAR HGB CONC 34.5 g/dL (33.0-36.5); MEAN CORPUSCULAR VOLUME 90.4 FL (78-98); MEAN PLATELET VOLUME 7.6 FL (7.4-10.4); MONOCYTES # (AUTO) 0.9 X10'3 (0-0.9); MONOCYTES % (AUTO) 10.8 % (2-12); NEUTROPHILS # (AUTO) 6.1 X10'3 (1.8-7.7); PLATELET COUNT 364 X10'3 (140-440); RED BLOOD COUNT 5.95 X10'6 (4.70-6.10); RED CELL DISTRIBUTION WIDTH 13.2 % (11.5-14.5); WHITE BLOOD COUNT 8.8 X10'3 (4.5-11.0)
[2023-10-09 10:15] LABS: HEMOGLOBIN 18.6 g/dl (14.0-17.9)
[2023-10-09 11:18] LABS: ALBUMIN 3.2 G/DL (3.4-5.0); ANION GAP 10 (8-16); BLOOD UREA NITROGEN 24 MG/DL (7-18); CALCIUM 8.8 MG/DL (8.5-10.1); CHLORIDE 98 MMOL/L (99-107); GLUCOSE 104 MG/DL (70-104); POTASSIUM 3.7 MMOL/L (3.5-5.1); SODIUM 136 MMOL/L (135-145); TOTAL CARBON DIOXIDE 28.1 MMOL/L (24-32); eCRCL 57 ML/MIN; eGFR 63 ML/MIN
[2023-10-09] MEDS: normal saline 1000ml 1,000 ML IV SCH (14:55)
[2023-10-09] MEDS: CefTRIAXone/D5W-Rocephin 1gm 50 ML IV SCH (20:34)
[2023-10-10] VITALS (15 sets, daily range): BP systolic 97–126; BP diastolic 66–84; PULSE 71–98; RESP 15–24; TEMP 96–98.2; O2SAT 91–97
[2023-10-10 05:21] LABS: ABG BASE EXCESS 5.6 mmol/L (-2.0-2.0); ABG HCO3 29.6 mmol/L (22.0-26.0); ABG OXYGEN SATURATION 92.7 % (94-97); ABG PCO2 (T) 40.1 mmHg (35.0-48.0); ABG PH (T) 7.485 (7.340-7.440); ABG PO2 (T) 60.6 mmHg (75.0-100.0); ALLEN'S TEST Modified; FCOHb 0.3 % (0.0-3.9); FHHb 7.3 % (0.0-5.0); FLOW 25 L/min; FMetHb 0.1 % (0.0-1.5); FO2Hb 92.3 % (94-97); PATIENT TEMPERATURE 36.6; TOTAL HEMOGLOBIN 18.5 G/dl (14.0-17.9)
[2023-10-10 06:35] LABS: BASOPHILS # (AUTO) 0.1 X10'3 (0-0.2); BASOPHILS % (AUTO) 0.9 % (0-1); EOSINOPHILS # (AUTO) 0.3 X10'3 (0-0.9); EOSINOPHILS % (AUTO) 3.5 % (0-6); HEMATOCRIT 50.3 % (42.0-52.0); HEMOGLOBIN 17.2 g/dl (14.0-17.9); LYMPHOCYTES # (AUTO) 1.8 X10'3 (1.1-4.8); MEAN CORPUSCULAR HEMOGLOBIN 30.8 PG (27.0-31.0); MEAN CORPUSCULAR HGB CONC 34.2 g/dL (33.0-36.5); MEAN CORPUSCULAR VOLUME 90.2 FL (78-98); MEAN PLATELET VOLUME 7.5 FL (7.4-10.4); NEUTROPHILS # (AUTO) 5.7 X10'3 (1.8-7.7); NEUTROPHILS % (AUTO) 64.6 % (42-75); PLATELET COUNT 336 X10'3 (140-440); RED BLOOD COUNT 5.58 X10'6 (4.70-6.10); WHITE BLOOD COUNT 8.8 X10'3 (4.5-11.0)
[2023-10-10 06:43] LABS: ALBUMIN 3.1 G/DL (3.4-5.0); ANION GAP 6 (8-16); BLOOD UREA NITROGEN 28 MG/DL (7-18); BUN/CREATININE RATIO 20.7 (10.0-20.0); CALCIUM 8.7 MG/DL (8.5-10.1); CHLORIDE 98 MMOL/L (99-107); CREATININE 1.35 MG/DL (0.60-1.10); GLUCOSE 101 MG/DL (70-104); POTASSIUM 3.6 MMOL/L (3.5-5.1); SODIUM 136 MMOL/L (135-145); TOTAL CARBON DIOXIDE 31.6 MMOL/L (24-32); eCRCL 51 ML/MIN; eGFR 55 ML/MIN
[2023-10-10] MEDS: docusate sod 100mg capsule PO SCH ×2 (08:00→20:00)
[2023-10-10] MEDS: pantoprazole 40mg Tablet.DR PO SCH (08:19)
[2023-10-10] MEDS: apixaban 5mg tablet PO SCH ×2 (08:20→20:44)
[2023-10-10] MEDS: atorvastatin 10mg tablet PO SCH (08:20)
[2023-10-10] MEDS: furosemide 40mg/4ml inj IV SCH (09:48)
[2023-10-10] MEDS: metoprolol tartrate 25mg tablet PO SCH ×2 (09:48→20:00)
[2023-10-10] MEDS: lactose-reduced food (Ensure Enlive) - 237ml bottle PO SCH (17:30)
[2023-10-10] MEDS: normal saline 1000ml 1,000 ML IV SCH (20:45)
[2023-10-10] MEDS: CefTRIAXone/D5W-Rocephin 1gm 50 ML IV SCH (20:45)
[2023-10-11] VITALS (13 sets, daily range): BP systolic 110–130; BP diastolic 76–83; PULSE 77–99; RESP 18–26; TEMP 96.8–98; O2SAT 90–99
[2023-10-11 06:18] LABS: BASOPHILS # (AUTO) 0.1 X10'3 (0-0.2); EOSINOPHILS # (AUTO) 0.2 X10'3 (0-0.9); EOSINOPHILS % (AUTO) 2.9 % (0-6); HEMATOCRIT 46.3 % (42.0-52.0); HEMOGLOBIN 15.8 g/dl (14.0-17.9); LYMPHOCYTES # (AUTO) 1.6 X10'3 (1.1-4.8); LYMPHOCYTES % (AUTO) 19.5 % (21-51); MEAN CORPUSCULAR HEMOGLOBIN 30.9 PG (27.0-31.0); MEAN CORPUSCULAR HGB CONC 34.2 g/dL (33.0-36.5); MEAN CORPUSCULAR VOLUME 90.3 FL (78-98); MEAN PLATELET VOLUME 7.5 FL (7.4-10.4); MONOCYTES # (AUTO) 0.9 X10'3 (0-0.9); MONOCYTES % (AUTO) 11.3 % (2-12); NEUTROPHILS # (AUTO) 5.2 X10'3 (1.8-7.7); NEUTROPHILS % (AUTO) 65.3 % (42-75); PLATELET COUNT 310 X10'3 (140-440); RED BLOOD COUNT 5.12 X10'6 (4.70-6.10); RED CELL DISTRIBUTION WIDTH 12.9 % (11.5-14.5)
[2023-10-11 06:44] LABS: ANION GAP 5 (8-16); BLOOD UREA NITROGEN 28 MG/DL (7-18); BUN/CREATININE RATIO 22.4 (10.0-20.0); CHLORIDE 100 MMOL/L (99-107); CREATININE 1.25 MG/DL (0.60-1.10); GLUCOSE 89 MG/DL (70-104); POTASSIUM 3.7 MMOL/L (3.5-5.1); SODIUM 137 MMOL/L (135-145); TOTAL CARBON DIOXIDE 31.7 MMOL/L (24-32)
[2023-10-11 06:45] LABS: ALBUMIN 2.8 G/DL (3.4-5.0); CALCIUM 7.9 MG/DL (8.5-10.1); eCRCL 55 ML/MIN; eGFR 60 ML/MIN
[2023-10-11] MEDS: lactose-reduced food (Ensure Enlive) - 237ml bottle PO SCH ×2 (07:30→17:30)
[2023-10-11] MEDS: furosemide 40mg/4ml inj IV SCH ×2 (08:52→22:11)
[2023-10-11] MEDS: metoprolol tartrate 25mg tablet PO SCH ×2 (08:52→22:18)
[2023-10-11] MEDS: pantoprazole 40mg Tablet.DR PO SCH (08:52)
[2023-10-11] MEDS: docusate sod 100mg capsule PO SCH ×2 (08:52→22:11)
[2023-10-11] MEDS: atorvastatin 10mg tablet PO SCH (08:52)
[2023-10-11] MEDS: apixaban 5mg tablet PO SCH ×2 (08:53→22:11)
[2023-10-11] MEDS: normal saline 1000ml 1,000 ML IV SCH (17:43)
[2023-10-11] MEDS ORDERED: methylPREDNISolone sod succ 125mg/2ml vial IV ONE (19:05)
[2023-10-11] MEDS: methylPREDNISolone sod succ 125mg/2ml vial IV SCH (22:11)
[2023-10-12] VITALS (7 sets, daily range): BP systolic 108–120; BP diastolic 67–77; PULSE 76–88; RESP 16–20; TEMP 97.1–97.8; O2SAT 91–98
[2023-10-12] MEDS: methylPREDNISolone sod succ 125mg/2ml vial IV SCH ×2 (02:00→07:37)
[2023-10-12 06:55] LABS: ALBUMIN 3.6 G/DL (3.4-5.0); ANION GAP 12 (8-16); BLOOD UREA NITROGEN 33 MG/DL (7-18); BUN/CREATININE RATIO 26.8 (10.0-20.0); CHLORIDE 98 MMOL/L (99-107); CREATININE 1.23 MG/DL (0.60-1.10); GLUCOSE 138 MG/DL (70-104); POTASSIUM 4.3 MMOL/L (3.5-5.1); SODIUM 135 MMOL/L (135-145); TOTAL CARBON DIOXIDE 25.2 MMOL/L (24-32); eCRCL 56 ML/MIN; eGFR 62 ML/MIN
[2023-10-12 06:59] LABS: CALCIUM 9.1 MG/DL (8.5-10.1)
[2023-10-12 07:00] LABS: MEAN CORPUSCULAR HEMOGLOBIN 31.2 PG (27.0-31.0); MEAN CORPUSCULAR HGB CONC 34.6 g/dL (33.0-36.5); RED CELL DISTRIBUTION WIDTH 12.8 % (11.5-14.5)
[2023-10-12 07:01] LABS: BASOPHILS % (AUTO) 0.1 % (0-1); EOSINOPHILS % (AUTO) 0.1 % (0-6); HEMATOCRIT 49.1 % (42.0-52.0); LYMPHOCYTES # (AUTO) 0.6 X10'3 (1.1-4.8); LYMPHOCYTES % (AUTO) 6.5 % (21-51); MEAN CORPUSCULAR VOLUME 90.2 FL (78-98); MONOCYTES # (AUTO) 0.1 X10'3 (0-0.9); MONOCYTES % (AUTO) 0.7 % (2-12); NEUTROPHILS # (AUTO) 9.2 X10'3 (1.8-7.7); NEUTROPHILS % (AUTO) 92.6 % (42-75); PLATELET COUNT 377 X10'3 (140-440); RED BLOOD COUNT 5.45 X10'6 (4.70-6.10); WHITE BLOOD COUNT 9.9 X10'3 (4.5-11.0)
[2023-10-12] MEDS: furosemide 40mg/4ml inj IV SCH (07:36)
[2023-10-12] MEDS: apixaban 5mg tablet PO SCH (07:37)
[2023-10-12] MEDS: docusate sod 100mg capsule PO SCH (07:37)
[2023-10-12] MEDS: metoprolol tartrate 25mg tablet PO SCH (07:37)
[2023-10-12] MEDS: atorvastatin 10mg tablet PO SCH (07:37)
[2023-10-12] MEDS: pantoprazole 40mg Tablet.DR PO SCH (07:37)
[2023-10-12] MEDS: lactose-reduced food (Ensure Enlive) - 237ml bottle PO SCH (07:41)
[2023-10-12] MEDS ORDERED: FURO40TA4 PO (10:52)
[2023-10-12] MEDS ORDERED: ALBU90AE INH (10:52)
[2023-10-12] MEDS ORDERED: PRED20TA PO (10:52)
[2023-10-12] MEDS ORDERED: ATOR10TA PO (10:52)
== END 2023-10-12 13:22 | disposition home or self-care (01) | DRG 871 ==
LOC: ER 01:19 → ED HOLD 05:27 → PCU 3S 17:01
PROVIDERS: ADMIT Family Medicine; ATTEND Family Medicine
PROC: B32T1ZZ Computerized Tomography (CT Scan) of Left Pulmonary Artery using Low Osmolar Contrast (ICD-10-PCS; principal; 2023-10-03)
PROC: B3201ZZ Computerized Tomography (CT Scan) of Thoracic Aorta using Low Osmolar Contrast (ICD-10-PCS; 2023-10-03)
PROC: B32S1ZZ Computerized Tomography (CT Scan) of Right Pulmonary Artery using Low Osmolar Contrast (ICD-10-PCS; 2023-10-03)
PROC: 5A09357 Assistance with Respiratory Ventilation, Less than 24 Consecutive Hours, Continuous Positive Airway Pressure (ICD-10-PCS; 2023-10-03)
PROC: 5A0935A Assistance with Respiratory Ventilation, Less than 24 Consecutive Hours, High Flow/Velocity Cannula (ICD-10-PCS; 2023-10-03)
PROC: 5A09357 Assistance with Respiratory Ventilation, Less than 24 Consecutive Hours, Continuous Positive Airway Pressure (ICD-10-PCS; 2023-10-04)
PROC: 5A0935A Assistance with Respiratory Ventilation, Less than 24 Consecutive Hours, High Flow/Velocity Cannula (ICD-10-PCS; 2023-10-04)
PROC: 5A0955A Assistance with Respiratory Ventilation, Greater than 96 Consecutive Hours, High Flow/Velocity Cannula (ICD-10-PCS; 2023-10-05)
DX: A41.9 Sepsis, unspecified organism (principal); I50.33 Acute on chronic diastolic (congestive) heart failure; J12.1 Respiratory syncytial virus pneumonia; J96.01 Acute respiratory failure with hypoxia; N17.0 Acute kidney failure with tubular necrosis; E87.1 Hypo-osmolality and hyponatremia; I13.0 Hypertensive heart and chronic kidney disease with heart failure and stage 1 through stage 4 chronic kidney disease, or unspecified chronic kidney disease; Z20.822 Contact with and (suspected) exposure to COVID-19; E86.1 Hypovolemia; F15.10 Other stimulant abuse, uncomplicated; N18.9 Chronic kidney disease, unspecified; E78.5 Hyperlipidemia, unspecified; J98.4 Other disorders of lung; I27.20 Pulmonary hypertension, unspecified; Z79.899 Other long term (current) drug therapy; Z86.711 Personal history of pulmonary embolism; Z86.718 Personal history of other venous thrombosis and embolism; Z79.01 Long term (current) use of anticoagulants
CPT/HCPCS: 36415; 36600; 71045; 71275; 80048; 80053; 80061; 80305; 81003; 82803; 83036; 83735; 83880; 84100; 84484; 85018; 85025; 85610; 85730; 87081; 87502; 87503; 87634; 87811; 93306; 94640; 94660; 94760; 99285; A4615; A6212; A6213; A6253; G0378; J0456; J0696; J1940; J2060; J2930; J3360; J3490; J7030; Q9967